=== PATIENT | female | born 1925 | race Caucasian/White ===

== ENCOUNTER 2017-09-11 11:48 | Inpatient (IN) | payer OTHER ==
[~2017-09-11] VITALS: Ht 149.9 cm; Wt 47.8 kg
[~2017-09-11 11:48] MED LIST: CHOL100010 PO; INSU70IN2 SQ; PHYT100T PO; PRT40 PO
--- NOTE | 2017-09-11 12:52 | EMERGENCY ROOM VISIT NOTE ---
History Report prepared by Rufino: Danny Roman Under the Supervision of: Dr. Buddy Zazueta M.D. First contact with patient: 12:50 Chief Complaint: HYPERGLYCEMIA Stated Complaint: HIGH BLOOD SUGAR Nursing Triage Summary: elevated blood sugar. went to [facility] today and was sent here. patient not taking insulin regularly. bsg meter reading high in triage History of Present Illness The patient is a 89 year old female who presents to the Emergency Room with complaints of confusion and not taking her insulin for her DM. The patient went to her PCP in [facility]. She had diarrhea recently and rashes on her lower limbs per her son. She denies, cough, chest pain, SOB, headaches, LOC, colds, fevers, leg cramping, and abdominal pain. She has chronic lower back pain. Of note, the patient lives independently in her own apartment. Rash bilateral lower legs a few months ago resolved. Source of History: patient, family Onset: 3 days ago Position: other (general) Timing: constant Modifying Factors (Worsening): other (not taking her insulin) Associated Symptoms: + diarrhea, + rash (lower legs), No LOC, No fevers, No chills, No headache, No cough, No chest pain, No SOB, No abdominal pain Note: no leg cramping Review of Systems See HPI for pertinent positives & negatives. A total of 10 systems reviewed and were otherwise negative. Past Medical & Surgical Medical Problems: (1) Cirrhosis (2) CKD (chronic kidney disease), stage III (3) Depression (4) DM type 2 (diabetes mellitus, type 2) (5) GERD (gastroesophageal reflux disease) (6) History of esophageal varices (7) History of pernicious anemia (8) Hyperglycemia (9) Osteoporosis (10) Panic attacks (11) Portal hypertension (12) PUD (peptic ulcer disease) (13) Vitamin D deficiency Surgical Problems: (1) H/O colonoscopy (2) H/O esophagogastroduodenoscopy (3) H/O sigmoidoscopy (4) Hx of cholecystectomy (5) S/P appendectomy Family History Diabetes mellitus FH: liver disease Gallbladder disease Social History Smoking Status: Never Smoker Drug Use: none Marital Status: Housing Status: lives with family Occupation Status: retired Current/Historical Medications Scheduled Alendronate Sodium (Fosamax), 1 TAB PO WK Ascorbic Acid (Vitamin C), 500 MG PO DAILY Cholecalciferol (Vitamin D3), 1 TAB PO Q3D Insulin Human Isophan/Regular (Novolin 70/30), 10 UNITS SQ QPM Insulin Isophan/Regular (Novolin 70/30), 22 UNITS SQ QAM Pantoprazole (Protonix), 40 MG PO QDD Phytonadione (Vitamin K), 100 MCG PO QAM Allergies Coded Allergies: Penicillins (Unverified Allergy, Unknown, RASH, 09/11/17) Physical Exam Vital Signs Date Time Temp Pulse Resp B/P (MAP) Pulse Ox O2 Delivery O2 Flow Rate FiO2 09/11/17 13:29 100 20 149/85 96 Room Air 09/11/17 11:54 36.8 108 18 137/75 98 Room Air Physical Exam GENERAL: Patient is well appearing and in no acute distress. HEENT: No acute trauma, normocephalic atraumatic, dry mucous membranes, no nasal congestion, no scleral icterus. NECK: No stridor, no adenopathy, no meningismus, trachea is midline. LUNGS: No dyspnea. Clear to auscultation and equal bilaterally. No wheeze, no rhonchi. HEART: Mild tachycardia. No murmurs, rubs, gallops appreciated. ABDOMEN: Soft, nontender, bowel sounds positive, no masses appreciated, no peritonitis. BACK: No midline tenderness, no CVA tenderness EXTREMITIES: Normal motion all extremities, no cyanosis, no edema. NEUROLOGIC: Alert and oriented, no acute motor or sensory deficits, no focal weakness, cranial nerves grossly intact. SKIN: No rash, no jaundice, no diaphoresis. Medical Decision & Procedures ER Provider Diagnostic Interpretation: Radiology results and stated below per my review and radiologist interpretation: CHEST ONE VIEW PORTABLE CLINICAL HISTORY: hyperglycemia dyspnea COMPARISON STUDY: 02/21/2014 FINDINGS: The bones soft tissues and hemidiaphragms are normal. The cardiomediastinal silhouette is normal. The lungs are clear. The pulmonary vasculature is normal. IMPRESSION: Negative chest. The above report was generated using voice recognition software. It may contain grammatical, syntax or spelling errors. Electronically signed by: Jose Lee M.D. 09/11/2017 1:42 PM Laboratory Results 09/11/17 12:10 Red Blood Count 4.23, Mean Corpuscular Volume 91.0, Mean Corpuscular Hemoglobin 32.2, Mean Corpuscular Hemoglobin Concent 35.3, Mean Platelet Volume 11.2, Neutrophils (%) (Auto) 80.6, Lymphocytes (%) (Auto) 11.6, Monocytes (%) (Auto) 4.0, Eosinophils (%) (Auto) 3.4, Basophils (%) (Auto) 0.1, Neutrophils # (Auto) 5.50, Lymphocytes # (Auto) 0.79, Monocytes # (Auto) 0.27, Eosinophils # (Auto) 0.23, Basophils # (Auto) 0.01 09/11/17 12:10 Test 09/11/17 12:10 White Blood Count 6.82 K/uL (4.8-10.8) Red Blood Count 4.23 M/uL (4.2-5.4) Hemoglobin 13.6 g/dL (12.0-16.0) Hematocrit 38.5 % (37-47) Mean Corpuscular Volume 91.0 fL (80-100) Mean Corpuscular Hemoglobin 32.2 pg (25-34) Mean Corpuscular Hemoglobin Concent 35.3 g/dl (32-36) Platelet Count 69 K/uL (130-400) Mean Platelet Volume 11.2 fL (7.4-10.4) Neutrophils (%) (Auto) 80.6 % Lymphocytes (%) (Auto) 11.6 % Monocytes (%) (Auto) 4.0 % Eosinophils (%) (Auto) 3.4 % Basophils (%) (Auto) 0.1 % Neutrophils # (Auto) 5.50 K/uL (1.4-6.5) Lymphocytes # (Auto) 0.79 K/uL (1.2-3.4) Monocytes # (Auto) 0.27 K/uL (0.11-0.59) Eosinophils # (Auto) 0.23 K/uL (0-0.5) Basophils # (Auto) 0.01 K/uL (0-0.2) RDW Standard Deviation 43.0 fL (36.4-46.3) RDW Coefficient of Variation 13.2 % (11.5-14.5) Immature Granulocyte % (Auto) 0.3 % Immature Granulocyte # (Auto) 0.02 K/uL (0.00-0.02) Platelet Estimate DECREASED Anion Gap 6.0 mmol/L (3-11) Est Creatinine Clear Calc Drug Dose 12.9 ml/min Estimated GFR () 24.7 Estimated GFR (Non- 21.3 BUN/Creatinine Ratio 16.8 (10-20) Calcium Level 10.2 mg/dl (8.5-10.1) Total Bilirubin 1.9 mg/dl (0.2-1) Aspartate Amino Transf (AST/SGOT) 24 U/L (15-37) Alanine Aminotransferase (ALT/SGPT) 29 U/L (12-78) Alkaline Phosphatase 121 U/L (45-117) Total Protein 7.9 gm/dl (6.4-8.2) Albumin 3.8 gm/dl (3.4-5.0) Globulin 4.1 gm/dl (2.5-4.0) Albumin/Globulin Ratio 0.9 (0.9-2) Beta-Hydroxybutyric Acid 4.49 mg/dL (0.2-2.81) Medications Administered Medications (Trade) Dose Ordered Sig/Jovan Route Start Time Stop Time Status Last Admin Dose Admin Sodium Chloride 1,000 ml @ 999 mls/hr Q1H1M STAT IV 09/11/17 13:05 09/11/17 14:05 DC 09/11/17 13:27 999 MLS/HR Insulin Human Regular (novoLIN-R U-100 PER UNIT) 6 units NOW STAT IV 09/11/17 13:05 09/11/17 13:06 DC 09/11/17 13:28 6 UNITS ED Course 1254: I checked her blood glucose level which is at 684. 1319: I called about connecting with [facility] for management of her DM and renal failure. 1324: I spoke with KATHLEEN Brown about managing the patient and starting an Insulin Drip. 1326: I spoke with Nat the immigration case manager about management plan for the patient. 1327: I checked in with the patient about her management plan. Medical Decision 89 yr old female arrives from outpatient clinic for evaluation of hyperglycemia. She is dehydrated appearing with mild tachycardia. Labs reveal acute renal failure compared to her history. Suspect this is secondary to her dehydration from several days hyperglycemia, however given her age and level of hyperglycemia I feel that coming in necessary. No infectious symptoms per patient. CXR clear. Dehydrated to point where no UOP while in ED. No indication of need for empiric abx at this time. Impression Primary Impression: Hyperglycemia Additional Impressions: Renal failure Dehydration Scribe Attestation The scribe's documentation has been prepared under my direction and personally reviewed by me in its entirety. I confirm that the note above accurately reflects all work, treatment, procedures, and medical decision making performed by me. Departure Information Referrals No Doctor, Assigned (PCP) Patient Instructions My [facility] Problem Qualifiers
[2017-09-11 12:54] LABS: BUN/CREATININE RATIO 16.8 (10-20); CALCIUM 10.2 mg/dl (8.5-10.1); POTASSIUM 4.2 mmol/L (3.5-5.1)
[2017-09-11 13:00] LABS: ALB/GLOB RATIO 0.9 (0.9-2); CREATININE 2.02 mg/dl (0.60-1.20)
[2017-09-11 13:05] LABS: BETA-HYDROXYBUTYRATE 4.49 mg/dL (0.2-2.81)
[2017-09-11] MEDS ORDERED: NovoLIN-R INSULIN PER UNIT CHARGE IV STA (13:05)
[2017-09-11] MEDS ORDERED: SODIUM CHLORIDE 0.9% 1000ML 1,000 ML IV STA (13:05)
[2017-09-11 13:07] LABS: HEMATOCRIT 38.5 % (37-47); MEAN CORPUSCULAR HEMOGLOBIN 32.2 pg (25-34); MEAN CORPUSCULAR HGB CONC 35.3 g/dl (32-36); RED BLOOD COUNT 4.23 M/uL (4.2-5.4); WHITE BLOOD COUNT 6.82 K/uL (4.8-10.8)
[2017-09-11 13:18] LABS: MEAN PLATELET VOLUME 11.2 fL (7.4-10.4); PLATELET COUNT 69 K/uL (130-400)
[2017-09-11 13:19] LABS: BASO % 0.1 %; BASO ABS # 0.01 K/uL (0-0.2); COMPLETE YES; EOS % 3.4 %; IG% 0.3 %; LYMPH % 11.6 %; LYMPH ABS # 0.79 K/uL (1.2-3.4); NEUT % 80.6 %; PLT ESTIMATE DECREASED
[2017-09-11] MEDS ORDERED: PANT40TA PO (13:25)
--- NOTE | 2017-09-11 13:43 | DIAGNOSTIC IMAGING REPORT ---
CHEST ONE VIEW PORTABLE CLINICAL HISTORY: hyperglycemia dyspnea COMPARISON STUDY: 02/21/2014 FINDINGS: The bones soft tissues and hemidiaphragms are normal. The cardiomediastinal silhouette is normal. The lungs are clear. The pulmonary vasculature is normal. IMPRESSION: Negative chest. The above report was generated using voice recognition software. It may contain grammatical, syntax or spelling errors. Electronically signed by: Jose Lee M.D. 09/11/2017 1:42 PM Dictated Date/Time: 09/11/2017 1:42 PM
[2017-09-11] MEDS ORDERED: SODIUM CHLORIDE 0.9% 1000ML 1,000 ML IV SCH (14:30)
[2017-09-11] MEDS ORDERED: INSULIN HUMAN REGULAR PER UNIT 5 UNITS in SYRINGE 0 ML IV ONE (15:15)
[2017-09-11] MEDS ORDERED: ASCO1CAP3 PO (15:18)
[2017-09-11] MEDS ORDERED: ALEN70TA2 PO (15:18)
[2017-09-11] MEDS ORDERED: VTMD1000 PO (15:18)
[2017-09-11] MEDS ORDERED: PHARMACY GLYCEMIC MGMT CONSULT PRN (15:26)
[2017-09-11] MEDS ORDERED: GLUCOSE 10 TABS/TUBE PO PRN (15:30)
[2017-09-11] MEDS ORDERED: DEXTROSE 50% 50 ML SYR IV PRN (15:30)
[2017-09-11] MEDS ORDERED: GLUCAGON FOR INJ 1 MG VIAL SQ PRN (15:30)
[2017-09-11] MEDS ORDERED: GLUCOSE 40% GEL 15 GM TUBE PO PRN (15:30)
--- NOTE | 2017-09-11 15:37 | History and Physical ---
History & Physical Date & Time of Service: Sep 11, 2017 at 15:37 Chief Complaint: Hyperglycemia Primary Care Physician: Selena Chaudhry D.O. History of Present Illness Source: patient, family, clinic records, hospital records 89 year old female with PMH of DM type 2, CKD stage 3, HTN, VIt D def was sent from PCP office for elevated BS. Pt went to PCP office today with son because son noticed that she was confused. Pt lives alone in her own apartment. As per son, he was checking her BS log that showed missing info for couple days where pt did not jose if she took her insulin. Son said that it seems like that she missed the last 4 days. Also son said that it seems like she only takes the insulin once some days instead of BID. Pt was not sure if she took her insulin this morning and she did not know her insulin dosage. She said that she follows what her log book said to take. Son said that when reviewed the BS log, there were couple numbers that were in the 400's. Pt said that she has been having some dry mouth. In the ER glucose was above 600. She denies, cough, chest pain, SOB, headaches, fever, dysuria, N/V and abdominal pain. Past Medical/Surgical History Medical Problems: (1) Cirrhosis Permanent Comment: presumably due to [place] Status: Chronic (2) CKD (chronic kidney disease), stage III Status: Chronic (3) Depression Status: Chronic (4) DM type 2 (diabetes mellitus, type 2) Status: Chronic (5) GERD (gastroesophageal reflux disease) Status: Chronic (6) History of esophageal varices Status: Chronic (7) History of pernicious anemia Status: Chronic (8) Osteoporosis Status: Chronic (9) Panic attacks Status: Chronic (10) Portal hypertension Status: Chronic (11) PUD (peptic ulcer disease) Status: Chronic (12) Vitamin D deficiency Status: Chronic Surgical Problems: (1) H/O colonoscopy Status: Chronic (2) H/O esophagogastroduodenoscopy Permanent Comment: 05/2006- grade III varices, gastric and duodenal ulcer 08/2006- grade II varices banded, non-bleeding erythematous gastropathy 05/2008- small varix, ring, hiatal hernia 10/2006- 2 shallow rings 03/2009- small varices, ring, hernia 04/2010- moderate hiatal hernia, grade 1 varices, portal HTN 03/2012- ulcer Status: Chronic (3) H/O sigmoidoscopy Status: Chronic (4) Hx of cholecystectomy Status: Chronic (5) S/P appendectomy Status: Chronic Family History Diabetes mellitus FH: liver disease Gallbladder disease Social History Smoking Status: Never Smoker Drug Use: none Marital Status: Housing status: lives alone Occupational Status: retired Multi-Drug Resistant Organisms History of MDRO: No Allergies Coded Allergies: Penicillins (Unverified Allergy, Unknown, RASH, 09/11/17) Home Medications Scheduled Alendronate Sodium (Fosamax), 1 TAB PO WK Ascorbic Acid (Vitamin C), 500 MG PO DAILY Cholecalciferol (Vitamin D3), 1 TAB PO Q3D Insulin Human Isophan/Regular (Novolin 70/30), 10 UNITS SQ QPM Insulin Isophan/Regular (Novolin 70/30), 22 UNITS SQ QAM Pantoprazole (Protonix), 40 MG PO QDD Phytonadione (Vitamin K), 100 MCG PO QAM Review of Systems Constitutional: + weakness, No fever, No chills Eyes: No eye pain, No redness ENT: No nasal symptoms, No sore throat Respiratory: No cough, No sputum, No shortness of breath Cardiovascular: No chest pain, No palpitations Abdomen: No pain, No nausea, No vomiting Musculoskeletal: No calf pain Genitourinary - Female: No dysuria, No hematuria Neurologic: + problem reported (confused) Psychiatric: No substance abuse Endocrine: No fatigue Hematologic / Lymphatic: No abnormal bleeding/bruising Integumentary: No new/changing skin lesions, No bleeding Physical Exam Vital Signs Date Time Temp Pulse Resp B/P (MAP) Pulse Ox O2 Delivery O2 Flow Rate FiO2 09/11/17 13:29 100 20 149/85 96 Room Air 09/11/17 11:54 36.8 108 18 137/75 98 Room Air General Appearance: WD/WN, no apparent distress Head: normocephalic, atraumatic Eyes: PERRL, EOMI ENT: hearing grossly normal Neck: supple, no JVD Respiratory/Chest: normal breath sounds, no respiratory distress, no accessory muscle use Cardiovascular: regular rate, rhythm, no JVD Abdomen/GI: non tender, soft Back: no CVA tenderness Extremities/Musculoskelatal: no calf tenderness Neurologic/Psych: no motor/sensory deficits, alert, oriented x 3 Skin: warm/dry, no rash Diagnostics Laboratory Results Results Past 24 Hours Test 09/11/17 11:57 09/11/17 12:10 Range/Units Bedside Glucose > 600 70-90 mg/dl White Blood Count 6.82 4.8-10.8 K/uL Red Blood Count 4.23 4.2-5.4 M/uL Hemoglobin 13.6 12.0-16.0 g/dL Hematocrit 38.5 37-47 % Mean Corpuscular Volume 91.0 80-100 fL Mean Corpuscular Hemoglobin 32.2 25-34 pg Mean Corpuscular Hemoglobin Concent 35.3 32-36 g/dl Platelet Count 69 130-400 K/uL Mean Platelet Volume 11.2 7.4-10.4 fL Neutrophils (%) (Auto) 80.6 % Lymphocytes (%) (Auto) 11.6 % Monocytes (%) (Auto) 4.0 % Eosinophils (%) (Auto) 3.4 % Basophils (%) (Auto) 0.1 % Neutrophils # (Auto) 5.50 1.4-6.5 K/uL Lymphocytes # (Auto) 0.79 1.2-3.4 K/uL Monocytes # (Auto) 0.27 0.11-0.59 K/uL Eosinophils # (Auto) 0.23 0-0.5 K/uL Basophils # (Auto) 0.01 0-0.2 K/uL RDW Standard Deviation 43.0 36.4-46.3 fL RDW Coefficient of Variation 13.2 11.5-14.5 % Immature Granulocyte % (Auto) 0.3 % Immature Granulocyte # (Auto) 0.02 0.00-0.02 K/uL Platelet Estimate DECREASED Sodium Level 131 136-145 mmol/L Potassium Level 4.2 3.5-5.1 mmol/L Chloride Level 94 98-107 mmol/L Carbon Dioxide Level 31 21-32 mmol/L Anion Gap 6.0 3-11 mmol/L Blood Urea Nitrogen 34 7-18 mg/dl Creatinine 2.02 0.60-1.20 mg/dl Est Creatinine Clear Calc Drug Dose 12.9 ml/min Estimated GFR () 24.7 Estimated GFR (Non- 21.3 BUN/Creatinine Ratio 16.8 10-20 Random Glucose 684 70-99 mg/dl Calcium Level 10.2 8.5-10.1 mg/dl Total Bilirubin 1.9 0.2-1 mg/dl Aspartate Amino Transf (AST/SGOT) 24 15-37 U/L Alanine Aminotransferase (ALT/SGPT) 29 12-78 U/L Alkaline Phosphatase 121 45-117 U/L Total Protein 7.9 6.4-8.2 gm/dl Albumin 3.8 3.4-5.0 gm/dl Globulin 4.1 2.5-4.0 gm/dl Albumin/Globulin Ratio 0.9 0.9-2 Beta-Hydroxybutyric Acid 4.49 0.2-2.81 mg/dL Diagnostic Radiology [~ rep ct add3]] CHEST ONE VIEW PORTABLE CLINICAL HISTORY: hyperglycemia dyspnea COMPARISON STUDY: 02/21/2014 FINDINGS: The bones soft tissues and hemidiaphragms are normal. The cardiomediastinal silhouette is normal. The lungs are clear. The pulmonary vasculature is normal. IMPRESSION: Negative chest. The above report was generated using voice recognition software. It may contain grammatical, syntax or spelling errors. Electronically signed by: Jose Lee M.D. 09/11/2017 1:42 PM Dictated Date/Time: 09/11/2017 1:42 PM Impression Assessment and Plan Hyperglycemic Hyperosmolar Nonketotic Syndrome Present with Elevated BS above 600 Normal anion gap Elevated Beta-hydroxybutyric acid Last HBA1c was 7.7 on 03/22 Received 6 unit regular IV insulin and 1L NS in the ER Will give an additional 1L bolus and will put on gentle fluid maintenance Pharmacy consulted for glycemic management Starting on insulin drip Will repeat BMP later Check UA Check Hba1c and BMP in am Diabetic education Monitor BS Hyponatremia Related to elevated glucose Corrected Na about 137 Continue monitor Acute LEXA on CKD Creatine on admission 2.02 Received IVF Continue monitor BMP Vit D def Continue Vitamin d supplement DVT px on will put on SCD for now (Hx of pectic ulcer dx/esophageal varices) CODE STATUS DNR as per patient in the presence of her son Disposition biofuels engineering manager for long term care social worker Level of Care Med/Surg Resuscitation Status DO NOT RESUSCITATE VTE Prophylaxis VTE Risk Assessment Done? Y/N: Yes Risk Level: Moderate Given or contraindicated: SCD's
[2017-09-11 15:45] VITALS: BP 127/74; PULSE 95; TEMP 36.5; O2SAT 98
[2017-09-11] MEDS ORDERED: INSULIN ASPART 100 UNITS/ML 3 ML PEN SC SCH (16:00)
[2017-09-11] MEDS ORDERED: INSULIN IV INFUSION PROTOCOL SCH (16:00)
[2017-09-11] MEDS ORDERED: INSULIN HUMAN REGULAR IV BOLUS PHA PREPARED IV ONE (16:45)
[2017-09-11] MEDS: INSULIN REGULAR 250 UNITS in SODIUM CHLORIDE 0.9% 250ML 250 ML IV SCH ×6 (17:09→22:17)
[2017-09-11] MEDS: PANTOprazole SOD 40 MG TAB PO SCH (17:34)
[2017-09-11 17:43] VITALS: BP 127/74; PULSE 95; TEMP 36.5; O2SAT 98; BMI 21.3
[2017-09-11] MEDS: INSULIN ASPART 100 UNITS/ML 3 ML PEN SC SCH ×2 (18:22→21:00)
--- NOTE | 2017-09-11 20:01 | Pharmacy Progress Note ---
Glycemic Control Intl Consult Date of Service Sep 11, 2017. Scope Glycemic Pharmacist consulted by Dr Walters on 09/11/17 for glycemic control and to write orders per [facility] inpatient glycemic control protocol Objective Weight (Kilograms): 47.800 Accuchecks BSG (last 24hrs): Test 09/11/17 11:57 09/11/17 12:10 09/11/17 14:04 09/11/17 16:12 Bedside Glucose > 600 mg/dl (70-90) 462 mg/dl (70-90) 456 mg/dl (70-90) Random Glucose 684 mg/dl (70-99) Test 09/11/17 18:13 09/11/17 19:11 Bedside Glucose 452 mg/dl (70-90) 448 mg/dl (70-90) Laboratory Data (last 24hrs) Test 09/11/17 12:10 Anion Gap 6.0 mmol/L BUN/Creatinine Ratio 16.8 Blood Urea Nitrogen 34 mg/dl Creatinine 2.02 mg/dl Potassium Level 4.2 mmol/L Sodium Level 131 mmol/L White Blood Count 6.82 K/uL Red Blood Count 4.23 M/uL Hemoglobin 13.6 g/dL Hematocrit 38.5 % Mean Corpuscular Volume 91.0 fL Mean Corpuscular Hemoglobin 32.2 pg Mean Corpuscular Hemoglobin Concent 35.3 g/dl Platelet Count 69 K/uL Mean Platelet Volume 11.2 fL Neutrophils (%) (Auto) 80.6 % Lymphocytes (%) (Auto) 11.6 % Monocytes (%) (Auto) 4.0 % Eosinophils (%) (Auto) 3.4 % Basophils (%) (Auto) 0.1 % Neutrophils # (Auto) 5.50 K/uL Lymphocytes # (Auto) 0.79 K/uL Monocytes # (Auto) 0.27 K/uL Eosinophils # (Auto) 0.23 K/uL Basophils # (Auto) 0.01 K/uL Recent Pertinent Medications Outpatient Anti-diabetic Regimen: * Novolin 70/30 22 u QAM + 10 u QPM Assessment & Plan ASSESSMENT: * 89 yo F admitted with confusion/hyperglycemia/not taking her insulin * Unknown how long pt has not been taking insulin - A1c unknown * BSGs in ER >600 mg/dL -Regular Insulin IV 6 units X 1 given - BSGs down to 450 mg/dL * Spoke with Dr. Walters and he is agreeable to insulin drip and initiating gentle hydration with potassium while on insulin drip * Start insulin drip with hopes of transitioning patient off in the next 24 hours PLAN FOR INPATIENT GLYCEMIC CONTROL: * Start IV insulin infusion per moderate stress protocol * Goal Range 100 - 180 mg/dl * Please note that the plan above was derived based on current level of insulin resistance and hospital stress. These recommendations are appropriate for inpatient admission only. Plan of care upon discharge will need to be reassessed to avoid potential outpatient hypo/hyperglycemia. Thank you.
[2017-09-11] MEDS: NSS + 20MEQ KCL 1000ML 1,000 ML IV SCH (21:19)
[2017-09-11 21:23] LABS: BUN/CREATININE RATIO 16.2 (10-20); CREATININE 1.49 mg/dl (0.60-1.20)
[2017-09-11 22:02] LABS: BETA-HYDROXYBUTYRATE 1.23 mg/dL (0.2-2.81)
[2017-09-11 22:30] LABS: CALCIUM 8.3 mg/dl (8.5-10.1)
[2017-09-11 22:33] LABS: POTASSIUM 3.5 mmol/L (3.5-5.1)
[2017-09-11 23:58] VITALS: BP 117/67; PULSE 74; TEMP 36.7; O2SAT 98
[2017-09-12 05:40] LABS: HEMATOCRIT 31.1 % (37-47); MEAN CELL VOLUME 89.1 fL (80-100); MEAN CORPUSCULAR HEMOGLOBIN 32.1 pg (25-34); RED BLOOD COUNT 3.49 M/uL (4.2-5.4); WHITE BLOOD COUNT 5.57 K/uL (4.8-10.8)
[2017-09-12 05:44] LABS: MEAN PLATELET VOLUME 10.7 fL (7.4-10.4); PLATELET COUNT 49 K/uL (130-400)
[2017-09-12 06:16] LABS: BUN/CREATININE RATIO 16.8 (10-20); CALCIUM 8.1 mg/dl (8.5-10.1); CREATININE 1.14 mg/dl (0.60-1.20); POTASSIUM 3.4 mmol/L (3.5-5.1)
[2017-09-12 06:57] LABS: ESTIMATED AVERAGE GLUCOSE 237 mg/dl; HA1C FLAG Normal (Normal)
[2017-09-12 07:20] VITALS: BP 126/74; PULSE 121; TEMP 36.7; O2SAT 94
[2017-09-12 08:00] VITALS: O2SAT 94
[2017-09-12] MEDS ORDERED: NON-FORMULARY MEDICATION (Phytonadione (Vitamin K) 100 MCG) PO SCH (08:00)
[2017-09-12] MEDS: ASCORBIC ACID 500 MG TAB PO SCH (08:41)
[2017-09-12] MEDS ORDERED: NURSING VERBAL MED ORDER ONE ×2 (08:45→17:45)
[2017-09-12] MEDS ORDERED: INSULIN GLARGINE SOLOSTAR 100 UNITS/ML 3 ML PEN SC ONE (09:30)
[2017-09-12] MEDS: NSS + 20MEQ KCL 1000ML 1,000 ML IV SCH (09:31)
[2017-09-12] MEDS: INSULIN REGULAR 250 UNITS in SODIUM CHLORIDE 0.9% 250ML 250 ML IV SCH ×3 (10:03→12:21)
[2017-09-12] MEDS ORDERED: POTASSIUM CHLORIDE 20 MEQ TABCR PO ONE (11:00)
--- NOTE | 2017-09-12 12:07 | Progress Note ---
Medicine Progress Note Date & Time of Visit: Sep 12, 2017 at 11:51. Subjective Pt was seen and examined Sitting in bed comfortable with no distress with family at bedside Pt said that she feels better She is very anxious to go home Denies any chest pain, palpitation, dizziness and SOB Objective Last 8 Hrs Date Time Temp Pulse Resp B/P (MAP) Pulse Ox O2 Delivery O2 Flow Rate FiO2 09/12/17 08:00 94 Room Air 09/12/17 07:20 36.7 121 16 126/74 (91) 94 Room Air Physical Exam: General- No acute distress Head- atraumatic Eyes- PERRL, EOMI ENT- oropharynx clear Neck- supple, no JVD Lungs- No wheezing Heart- tachycardia Abdomen- normal bowel sounds, soft Extremities- no calf tenderness Neuro- alert, oriented x 3; PERRL, EOMI Skin- warm & dry Laboratory Results: Last 24 Hours Test 09/11/17 11:57 09/11/17 12:10 09/11/17 14:04 09/11/17 16:12 Bedside Glucose > 600 mg/dl 462 mg/dl 456 mg/dl White Blood Count 6.82 K/uL Red Blood Count 4.23 M/uL Hemoglobin 13.6 g/dL Hematocrit 38.5 % Mean Corpuscular Volume 91.0 fL Mean Corpuscular Hemoglobin 32.2 pg Mean Corpuscular Hemoglobin Concent 35.3 g/dl Platelet Count 69 K/uL Mean Platelet Volume 11.2 fL Neutrophils (%) (Auto) 80.6 % Lymphocytes (%) (Auto) 11.6 % Monocytes (%) (Auto) 4.0 % Eosinophils (%) (Auto) 3.4 % Basophils (%) (Auto) 0.1 % Neutrophils # (Auto) 5.50 K/uL Lymphocytes # (Auto) 0.79 K/uL Monocytes # (Auto) 0.27 K/uL Eosinophils # (Auto) 0.23 K/uL Basophils # (Auto) 0.01 K/uL RDW Standard Deviation 43.0 fL RDW Coefficient of Variation 13.2 % Immature Granulocyte % (Auto) 0.3 % Immature Granulocyte # (Auto) 0.02 K/uL Platelet Estimate DECREASED Sodium Level 131 mmol/L Potassium Level 4.2 mmol/L Chloride Level 94 mmol/L Carbon Dioxide Level 31 mmol/L Anion Gap 6.0 mmol/L Blood Urea Nitrogen 34 mg/dl Creatinine 2.02 mg/dl Est Creatinine Clear Calc Drug Dose 12.9 ml/min Estimated GFR () 24.7 Estimated GFR (Non- 21.3 BUN/Creatinine Ratio 16.8 Random Glucose 684 mg/dl Calcium Level 10.2 mg/dl Total Bilirubin 1.9 mg/dl Aspartate Amino Transf (AST/SGOT) 24 U/L Alanine Aminotransferase (ALT/SGPT) 29 U/L Alkaline Phosphatase 121 U/L Total Protein 7.9 gm/dl Albumin 3.8 gm/dl Globulin 4.1 gm/dl Albumin/Globulin Ratio 0.9 Beta-Hydroxybutyric Acid 4.49 mg/dL Test 09/11/17 18:13 09/11/17 19:11 09/11/17 20:11 09/11/17 20:36 Bedside Glucose 452 mg/dl 448 mg/dl 392 mg/dl Sodium Level 136 mmol/L Potassium Level 3.5 mmol/L Chloride Level 102 mmol/L Carbon Dioxide Level 29 mmol/L Anion Gap 5.0 mmol/L Blood Urea Nitrogen 24 mg/dl Creatinine 1.49 mg/dl Est Creatinine Clear Calc Drug Dose 17.5 ml/min Estimated GFR () 35.7 Estimated GFR (Non- 30.8 BUN/Creatinine Ratio 16.2 Random Glucose 366 mg/dl Calcium Level 8.3 mg/dl Beta-Hydroxybutyric Acid 1.23 mg/dL Test 09/11/17 21:10 09/11/17 22:15 09/11/17 23:11 09/12/17 00:16 Bedside Glucose 342 mg/dl 300 mg/dl 245 mg/dl 211 mg/dl Test 09/12/17 01:19 09/12/17 02:56 09/12/17 04:07 09/12/17 05:05 Bedside Glucose 128 mg/dl 137 mg/dl 125 mg/dl 111 mg/dl Test 09/12/17 05:24 09/12/17 06:09 09/12/17 08:07 09/12/17 10:00 White Blood Count 5.57 K/uL Red Blood Count 3.49 M/uL Hemoglobin 11.2 g/dL Hematocrit 31.1 % Mean Corpuscular Volume 89.1 fL Mean Corpuscular Hemoglobin 32.1 pg Mean Corpuscular Hemoglobin Concent 36.0 g/dl RDW Standard Deviation 42.1 fL RDW Coefficient of Variation 13.1 % Platelet Count 49 K/uL Mean Platelet Volume 10.7 fL Sodium Level 139 mmol/L Potassium Level 3.4 mmol/L Chloride Level 109 mmol/L Carbon Dioxide Level 25 mmol/L Anion Gap 5.0 mmol/L Blood Urea Nitrogen 19 mg/dl Creatinine 1.14 mg/dl Est Creatinine Clear Calc Drug Dose 22.8 ml/min Estimated GFR () 49.4 Estimated GFR (Non- 42.6 BUN/Creatinine Ratio 16.8 Random Glucose 104 mg/dl Estimated Average Glucose 237 mg/dl Hemoglobin A1c 9.9 % Calcium Level 8.1 mg/dl Bedside Glucose 90 mg/dl 206 mg/dl 302 mg/dl Test 09/12/17 11:04 Bedside Glucose 270 mg/dl Assessment & Plan Hyperglycemic Hyperosmolar Nonketotic Syndrome Present with Elevated BS above 600 Normal anion gap with elevated Beta-hydroxybutyric acid Starting on insulin drip, will plan to D/C in the next few hours Recent Hba1c 9.9 Goal for her to be around 7.5 due to her age Lantus was starting at 16 unit diabetic education Will plan to discharge on Lantus once day instead of NPH twice ad day to help with compliant Continue monitor BS Hyponatremia Related to elevated glucose Na 139 today Continue monitor Acute LEXA on CKD Creatine on admission 2.02 Creatine today 1.1 D/C IVF Continue monitor BMP Resolved Hypokalemia K 3.4 Replaced continue monitor BMP Vit D def Continue Vitamin d supplement DVT px on will put on SCD for now (Hx of pectic ulcer dx/esophageal varices) CODE STATUS DNR Disposition [employer] Current Inpatient Medications: Current Inpatient Medications Medications (Trade) Dose Ordered Sig/Jovan Route Start Time Stop Time Status Last Admin Dose Admin Miscellaneous Information (Consult Glycemic Management Pharmacy) 1 ea UD PRN N/A 09/11/17 15:26 10/11/17 15:25 Pantoprazole Sodium (Protonix Tab) 40 mg QDD PO 09/11/17 17:00 10/11/17 17:59 09/11/17 17:34 40 MG Ascorbic Acid (Vitamin C Tab) 500 mg DAILY PO 09/12/17 08:00 10/12/17 08:59 09/12/17 08:41 500 MG Glucose (Glucose 40% Gel) 15-30 GRAMS 15 GRAMS... UD PRN PO 09/11/17 15:30 10/11/17 15:29 Glucose (Glucose Chew Tab) 4-8 Tablets 4 Tabl... UD PRN PO 09/11/17 15:30 10/11/17 15:29 Dextrose (Dextrose 50% 50ML Syringe) 25-50ML OF 50% DW IV FOR... UD PRN IV 09/11/17 15:30 10/11/17 15:29 Glucagon (Glucagon Inj) 1 mg UD PRN SQ 09/11/17 15:30 10/11/17 15:29 Potassium Chloride/Sodium Chloride 1,000 ml @ 75 mls/hr [id number] IV 09/11/17 20:00 10/11/17 19:59 09/12/17 09:31 75 MLS/HR Insulin Human Regular 250 units/ Sodium Chloride 252.5 ml @ 0 mls/hr Q24H IV 09/11/17 16:45 10/11/17 16:44 09/12/17 11:08 1.7 MLS/HR Insulin Aspart (novoLOG ASPART) SLIDING SCALE ACHS SC 09/12/17 11:00 10/12/17 10:59 Miscellaneous Information (Dc Iv Insulin Infusion) 1 ea 1530 ONCE N/A 09/12/17 15:30 09/12/17 15:31
[2017-09-12] MEDS: INSULIN ASPART 100 UNITS/ML 3 ML PEN SC SCH ×3 (13:04→20:46)
--- NOTE | 2017-09-12 13:04 | Pharmacy Progress Note ---
Pharmacy Glycemic Short Note 2 Date of Service Sep 12, 2017. OUTPATIENT ANTIDIABETIC REGIMEN: * Novolin 70/30 22 u QAM + 10 u QPM ASSESSMENT: * 89 yo F admitted with confusion and hyperglycemia. Pt's son reports non- compliance with insulin administration and dosing (suspect no insulin for 4 days prior to admission based on home insulin log) * Elevated A1c of 9.9%. Tight control not warranted given advanced age and comorbidities, however, slightly better control is desired. * Pt initiated on IV insulin infusion yesterday. * Of note, pt reports hypoglycemic symptoms at BSG 90 mg/dl or less - will utilize higher goal range PLAN FOR INPATIENT GLYCEMIC CONTROL: * Continue IV insulin infusion per protocol * overlap with SQ insulin for 6 hours, unless drip is turned off sooner per calculator * Basal insulin * Lantus 16 units SQ this am, then 8 units SQ tonight * Will attempt to transition to once daily dosing on 09/13 * Bolus insulin * NovoLog per scale ACHS or Q6hrs while NPO * Goal Range: Low 120 mg/dL - High 160 mg/dL * Correction Factor: 40 mg/dL/unit * Nutritional / Prandial insulin per carb ratio of 1 unit per 13 grams CHO consumed PLAN FOR DISCHARGE: * Patient is being discharged on Lantus to improve compliance - once daily dosing preferred * Recommend starting with Lantus 16 units SQ once daily and titrate dose per outpatient provider Thank you.
[2017-09-12 14:58] VITALS: Ht 149.9 cm; Wt 47.8 kg
[2017-09-12 15:20] VITALS: BP 144/82; PULSE 105; TEMP 37; O2SAT 98
[2017-09-12] MEDS ORDERED: DC IV INSULIN INFUSION ONE ×2 (15:30→16:00)
[2017-09-12] MEDS: PANTOprazole SOD 40 MG TAB PO SCH (17:57)
[2017-09-12] MEDS ORDERED: INSULIN GLARGINE SOLOSTAR 100 UNITS/ML 3 ML PEN SC SCH ×2 (18:00→20:00)
[2017-09-13] MEDS ORDERED: HALOPERIDOL LACTATE 5 MG/ML 1 ML VIAL IM ONE (01:00)
[2017-09-13] MEDS ORDERED: HALOPERIDOL LACTATE 5 MG/ML 1 ML VIAL ONE (01:03)
[2017-09-13] MEDS: INSULIN ASPART 100 UNITS/ML 3 ML PEN SC SCH ×4 (04:00→12:46)
[2017-09-13 07:09] LABS: URINE APPEARANCE CLEAR (CLEAR); URINE BILIRUBIN NEG (NEG); URINE COLOR YELLOW; URINE NITRITE NEG (NEG); URINE PH 5.5 (4.5-7.5); URINE SPECIFIC GRAVITY 1.011 (1.000-1.030); UROBILINOGEN NEG (NEG); ZZUR CULT IF INDIC CLEAN CATCH NO
[2017-09-13 07:11] LABS: MANUAL MICROSCOPIC REQUIRED? NO; REVIEW REQ? NO
[2017-09-13 07:42] VITALS: BP 133/85; PULSE 124; TEMP 36.2; O2SAT 100
[2017-09-13 08:00] VITALS: O2SAT 100
[2017-09-13] MEDS: ASCORBIC ACID 500 MG TAB PO SCH (08:58)
[2017-09-13] MEDS ORDERED: INSULIN GLARGINE SOLOSTAR 100 UNITS/ML 3 ML PEN SC SCH ×3 (09:00→21:00)
[2017-09-13 09:32] VITALS: PULSE 126; O2SAT 100
--- NOTE | 2017-09-13 12:28 | Pharmacy Progress Note ---
Pharmacy Glycemic Short Note 2 Date of Service Sep 13, 2017. OUTPATIENT ANTIDIABETIC REGIMEN: * Novolin 70/30 22 u QAM + 10 u QPM ASSESSMENT: * 89 yo F admitted with confusion and hyperglycemia. Pt's son reports non- compliance with insulin administration and dosing (suspect no insulin for 4 days prior to admission based on home insulin log). * Elevated A1c of 9.9%. Tight control not warranted given advanced age and comorbidities, however, slightly better control is desired. * Of note, pt reports hypoglycemic symptoms at BSG 90 mg/dl or less - will utilize higher goal range * Overnight BSG checks were ordered for the patient for 09/13 to aid in transition to SQ insulin regimen. She became agitated and attempted to leave the hospital after BSG check at 00. No further overnight checks will be ordered. * Pt was initiated on IV insulin infusion on admission. She was transitioned to SQ basal/bolus insulin yesterday afternoon. * Fasting and prandial BSG elevated today. Increase basal insulin from wt/ stress of 2 to stress of 3. * Tighten CF/CR. PLAN FOR INPATIENT GLYCEMIC CONTROL: * Basal insulin - increase * Lantus 16 units SQ qam * Additional 8 units SQ given with lunch for BSG 317 mg/dL * Bolus insulin - tighten * NovoLog per scale ACHS * Goal Range: Low 120 mg/dL - High 140 mg/dL * Correction Factor: 30 mg/dL/unit * Nutritional / Prandial insulin per carb ratio of 1 unit per 10 grams CHO consumed PLAN FOR DISCHARGE: * Patient is being discharged on Lantus to improve compliance - once daily dosing preferred * Recommend starting with Lantus 30 units SQ once daily and titrate dose per outpatient provider
[2017-09-13 14:46] VITALS: BP 142/77; PULSE 111; TEMP 36.6; O2SAT 100
--- NOTE | 2017-09-13 16:56 | Progress Note ---
Medicine Progress Note Date & Time of Visit: Sep 13, 2017 at 16:35. Subjective Pt was seen and examined Lying in bed with no distress with son at bedside Pt said that she feels fine she is very anxious to go home Last night she was confused and agitated and haldol was giving Denies any chest pain, palpitation, dizziness and SOB Objective Last 8 Hrs Date Time Temp Pulse Resp B/P (MAP) Pulse Ox O2 Delivery O2 Flow Rate FiO2 09/13/17 14:46 36.6 111 18 142/77 (98) 100 Room Air 09/13/17 09:32 126 100 Room Air Physical Exam: General- No acute distress Head- atraumatic Eyes- PERRL, EOMI ENT- oropharynx clear Neck- supple, no JVD Lungs- No wheezing Heart- tachycardia Abdomen- normal bowel sounds, soft Extremities- no calf tenderness Neuro- alert, oriented, PERRL, EOMI Skin- warm & dry Laboratory Results: Last 24 Hours Test 09/12/17 17:03 09/12/17 20:46 09/13/17 00:11 09/13/17 06:35 Bedside Glucose 101 mg/dl 136 mg/dl 125 mg/dl Urine Color YELLOW Urine Appearance CLEAR Urine pH 5.5 Urine Specific [place] 1.011 Urine Protein 1+ Urine Glucose (UA) NEG Urine Ketones TRACE Urine Occult Blood NEG Urine Nitrite NEG Urine Bilirubin NEG Urine Urobilinogen NEG Urine Leukocyte Esterase TRACE Urine WBC (Auto) 5-10 /hpf Urine RBC (Auto) 0-4 /hpf Urine Hyaline Casts (Auto) 1-5 /lpf Urine Epithelial Cells (Auto) 5-10 /lpf Urine Bacteria (Auto) NEG Test 09/13/17 07:50 09/13/17 11:31 Bedside Glucose 241 mg/dl 317 mg/dl Assessment & Plan Uncontrolled DM type 2 Hyperglycemic Hyperosmolar Nonketotic Syndrome Present with Elevated BS above 600 Normal anion gap with elevated Beta-hydroxybutyric acid Starting on insulin drip, will plan to D/C in the next few hours Recent Hba1c 9.9 Goal for her HBa1C to be around 7.5 due to her age plan to discharge on Lantus once day instead of NPH twice ad day to help with compliant Lantus increased to 30 units diabetic education since pt will be going to [facility], her insulin can be titrate q2days by 2 units until get to the BS goal Continue monitor BS Follow up a healthy diet and limited concentrated sweet Hyponatremia Related to elevated glucose Na 139 Continue monitor Acute LEXA on CKD Creatine on admission 2.02 Creatine 1.1 D/C IVF Continue monitor BMP Resolved Delirium was confused and agitated last night Received Haldol If continue consider low dose of Seroquel Sinus Tachycardia Possible related to anxiety Asymptomatic EKG showed no ischemic changes Consider to add a low dose beta allison if hr stays elevated Hypokalemia K 3.4 Replaced continue monitor BMP Vit D def Continue Vitamin d supplement DVT px on will put on SCD for now (Hx of pectic ulcer dx/esophageal varices) CODE STATUS DNR Disposition Discharge today to [facility] Consultants: Pharmacy for glycemic management Current Inpatient Medications: Current Inpatient Medications Medications (Trade) Dose Ordered Sig/Jovan Route Start Time Stop Time Status Last Admin Dose Admin Miscellaneous Information (Consult Glycemic Management Pharmacy) 1 ea UD PRN N/A 09/11/17 15:26 10/11/17 15:25 Pantoprazole Sodium (Protonix Tab) 40 mg QDD PO 09/11/17 17:00 10/11/17 17:59 09/12/17 17:57 40 MG Ascorbic Acid (Vitamin C Tab) 500 mg DAILY PO 09/12/17 08:00 10/12/17 08:59 09/13/17 08:58 500 MG Glucose (Glucose 40% Gel) 15-30 GRAMS 15 GRAMS... UD PRN PO 09/11/17 15:30 10/11/17 15:29 Glucose (Glucose Chew Tab) 4-8 Tablets 4 Tabl... UD PRN PO 09/11/17 15:30 10/11/17 15:29 Dextrose (Dextrose 50% 50ML Syringe) 25-50ML OF 50% DW IV FOR... UD PRN IV 09/11/17 15:30 10/11/17 15:29 Glucagon (Glucagon Inj) 1 mg UD PRN SQ 09/11/17 15:30 10/11/17 15:29 Insulin Aspart (novoLOG ASPART) SLIDING SCALE ACHS SC 09/12/17 11:00 10/12/17 10:59 09/13/17 12:46 11 UNITS Insulin Glargine (Lantus Solostar Pen) SEE PROTOCOL TEXT HS SC 09/13/17 21:00 12/9/17 23:00 Insulin Glargine (Lantus Solostar Pen) 30 units QAM ID 09/14/17 08:00 10/14/17 07:59
[2017-09-13] MEDS ORDERED: NVLGIPEN SC (17:01)
[2017-09-13] MEDS ORDERED: INSDGIPEN SC (17:01)
--- NOTE | 2017-09-13 17:05 | Discharge Instructions ---
Discharge Instructions Date of Service Sep 13, 2017. Admission Reason for Admission: Hyperglycemia Discharge Discharge Diagnosis / Problem: Uncontrolled DM type 2, LEXA on CKD stage 3, Hypokalemia Discharge Goals Goal(s): Decrease discomfort, Improve function, Improve disease control Activity Recommendations Activity Limitations: resume your previous activity (as tolerated) . Instructions / Follow-Up Instructions / Follow-Up Please follow up with your primary care physician once discharge to rehab Continue monitor blood sugar Lantus 30 units subq daily ( please titrate if blood sugar not at goal) Fall precaution Continue physical therapy Follow a healthy Diabetes diet and limited concentrated sweet Current Hospital Diet Patient's current hospital diet: Diabetes Type 2 Diet Discharge Diet Recommended Diet: Diabetes Type 2 Diet Pending Studies Studies pending at discharge: no Laboratory Results Hemoglobin A1c Test 09/12/17 05:24 Range/Units Estimated Average Glucose 237 mg/dl Hemoglobin A1c 9.9 H 4.5-5.6 % Medical Emergencies . Who to Call and When: Medical Emergencies: If at any time you feel your situation is an emergency, please call 911 immediately. . Non-Emergent Contact Non-Emergency issues call your: Primary Care Provider Call Non-Emergent contact if: you have any medication questions . . "Provider Documentation" section prepared by Son Walters. . VTE Core Measure Inpt VTE Proph given/why not?: SCD's
[2017-09-13 17:21] VITALS: BP 142/77; PULSE 111; TEMP 36.6; O2SAT 100
--- NOTE | 2017-09-13 17:45 | Discharge Summary ---
Discharge Summary Date of Service Sep 13, 2017. Discharge Summary Admission Date: Sep 11, 2017 at 13:37 Discharge Date: Sep 13, 2017 Discharge Disposition: Rehab Principal Diagnosis: Uncontrolled DM type 2 Secondary Diagnoses/Problems: Hyperglycemic Hyperosmolar Nonketotic Syndrome LEXA on CKD stage 3 Hypokalemia Hyponatremia Tachycardia Delirium Procedures: [~ rep ct add3]] CHEST ONE VIEW PORTABLE CLINICAL HISTORY: hyperglycemia dyspnea COMPARISON STUDY: 02/21/2014 FINDINGS: The bones soft tissues and hemidiaphragms are normal. The cardiomediastinal silhouette is normal. The lungs are clear. The pulmonary vasculature is normal. IMPRESSION: Negative chest. The above report was generated using voice recognition software. It may contain grammatical, syntax or spelling errors. Electronically signed by: Tigre Lee M.D. 09/11/2017 1:42 PM Dictated Date/Time: 09/11/2017 1:42 PM Medication Reconciliation New Medications: Insulin Aspart (Novolog Flexpen) 100 Units/Ml Inj 0 UNITS SC ACHS for 30 Days If Blood Sugar between 151 to 200 give 2 units 201 to 250 give 4 units 251 to 300 give 6 units above 301 please notify physician Insulin Glargine (Lantus Solostar) 100 Unit/Ml Inj 30 UNITS SC QAM for 30 Days Continued Medications: Alendronate Sodium (Fosamax) 70 Mg Tab 1 TAB PO WK, TAB Ascorbic Acid (Vitamin C) 500 Mg Cap 500 MG PO DAILY Cholecalciferol (Vitamin D3) 1,000 Inter.unit Tab 1 TAB PO Q3D Pantoprazole (Protonix) 40 Mg Tab 40 MG PO QDD Phytonadione (Vitamin K) 100 Mcg Tab 100 MCG PO QAM Discontinued Medications: Insulin Human Isophan/Regular (Novolin 70/30) Inj 10 UNITS SQ QPM Insulin Isophan/Regular (Novolin 70/30) Susp 22 UNITS SQ QAM Admission Information HPI (per Admitting provider): 89 year old female with PMH of DM type 2, CKD stage 3, HTN, VIt D def was sent from PCP office for elevated BS. Pt went to PCP office today with son because son noticed that she was confused. Pt lives alone in her own apartment. As per son, he was checking her BS log that showed missing info for couple days where pt did not tigre if she took her insulin. Son said that it seems like that she missed the last 4 days. Also son said that it seems like she only takes the insulin once some days instead of BID. Pt was not sure if she took her insulin this morning and she did not know her insulin dosage. She said that she follows what her log book said to take. Son said that when reviewed the BS log, there were couple numbers that were in the 400's. Pt said that she has been having some dry mouth. In the ER glucose was above 600. She denies, cough, chest pain, SOB, headaches, fever, dysuria, N/V and abdominal pain. Physical Exam (per Admitting): General Appearance: WD/WN, no apparent distress Head: normocephalic, atraumatic Eyes: PERRL, EOMI ENT: hearing grossly normal Neck: supple, no JVD Respiratory/Chest: normal breath sounds, no respiratory distress, no accessory muscle use Cardiovascular: regular rate, rhythm, no JVD Abdomen/GI: non tender, soft Back: no CVA tenderness Extremities/Musculoskelatal: no calf tenderness Neurologic/Psych: no motor/sensory deficits, alert, oriented x 3 Skin: warm/dry, no rash Hospital Course Uncontrolled DM type 2 Hyperglycemic Hyperosmolar Nonketotic Syndrome Present with Elevated BS above 600 Normal anion gap with elevated Beta-hydroxybutyric acid Starting on insulin drip, will plan to D/C in the next few hours Recent Hba1c 9.9 Goal for her HBa1C to be around 7.5 due to her age plan to discharge on Lantus once day instead of NPH twice ad day to help with compliant Lantus increased to 30 units diabetic education since pt will be going to [facility], her insulin can be titrate q2days by 2 units until get to the BS goal Continue monitor BS Follow up a healthy diet and limited concentrated sweet Hyponatremia Related to elevated glucose Na 139 Continue monitor Acute LEXA on CKD Creatine on admission 2.02 Creatine 1.1 D/C IVF Continue monitor BMP Resolved Sinus Tachycardia Possible related to anxiety Asymptomatic EKG showed no ischemic changes Consider to add a low dose beta allison if hr stays elevated Hypokalemia K 3.4 Replaced continue monitor BMP Vit D def Continue Vitamin d supplement DVT px on will put on SCD for now (Hx of pectic ulcer dx/esophageal varices) CODE STATUS DNR Disposition Discharge today to [facility] Total time spent on discharge = 35 minutes This includes examination of the patient, discharge planning, medication reconciliation, and communication with other providers. Discharge Instructions Please take this sheet to every appointment for the next month Discharge Instructions Date of Service Sep 13, 2017. Admission Reason for Admission: Hyperglycemia Discharge Discharge Diagnosis / Problem: Uncontrolled DM type 2, LEXA on CKD stage 3, Hypokalemia Discharge Goals Goal(s): Decrease discomfort, Improve function, Improve disease control Activity Recommendations Activity Limitations: resume your previous activity (as tolerated) . Instructions / Follow-Up Instructions / Follow-Up Please follow up with your primary care physician once discharge to rehab Continue monitor blood sugar Lantus 30 units subq daily ( please titrate if blood sugar not at goal) Fall precaution Continue physical therapy Follow a healthy Diabetes diet and limited concentrated sweet Current Hospital Diet Patient's current hospital diet: Diabetes Type 2 Diet Discharge Diet Recommended Diet: Diabetes Type 2 Diet Pending Studies Studies pending at discharge: no Laboratory Results Hemoglobin A1c Test 09/12/17 05:24 Range/Units Estimated Average Glucose 237 mg/dl Hemoglobin A1c 9.9 H 4.5-5.6 % Medical Emergencies . Who to Call and When: Medical Emergencies: If at any time you feel your situation is an emergency, please call 911 immediately. . Non-Emergent Contact Non-Emergency issues call your: Primary Care Provider Call Non-Emergent contact if: you have any medication questions . . "Provider Documentation" section prepared by Son Walters. . VTE Core Measure Inpt VTE Proph given/why not?: SCD's Signed: Signed: The status of this report is Draft * If report status is Draft, the document has not been finalized by the responsible provider. Additional Copies To [facility]
[2017-09-14] MEDS ORDERED: INSULIN GLARGINE SOLOSTAR 100 UNITS/ML 3 ML PEN SC SCH (08:00)
== END 2017-09-13 18:12 | DRG 638 ==
LOC: C.EDB 11:49 → C.4E 13:37 → ENRESERV 14:35
PROVIDERS: ADMIT Internal Medicine; ATTEND Internal Medicine
DX: E11.00 Type 2 diabetes mellitus with hyperosmolarity without nonketotic hyperglycemic-hyperosmolar coma (NKHHC) (principal); N17.9 Acute kidney failure, unspecified; E87.1 Hypo-osmolality and hyponatremia; E11.22 Type 2 diabetes mellitus with diabetic chronic kidney disease; N18.3 Chronic kidney disease, stage 3 (moderate); F32.9 Major depressive disorder, single episode, unspecified; R41.0 Disorientation, unspecified; K21.9 Gastro-esophageal reflux disease without esophagitis; I12.9 Hypertensive chronic kidney disease with stage 1 through stage 4 chronic kidney disease, or unspecified chronic kidney disease; E55.9 Vitamin D deficiency, unspecified; E87.6 Hypokalemia; Z66 Do not resuscitate; Z79.4 Long term (current) use of insulin; Z79.899 Other long term (current) drug therapy